=== PATIENT | male | born 1955 | race Caucasian/White ===

== ENCOUNTER 2017-08-21 13:06 | Inpatient (IN) | payer OTHER ==
[~2017-08-21] VITALS: Ht 177.8 cm; Wt 108.9 kg
[~2017-08-21 13:06] MED LIST: ASPIRIN EC81 M1 PO; CRESTOR10 M1 PO; CRESTOR20 M2 PO; JARDIANCE25 M1 PO; LISINOPRIL40 M1 PO; METFORMIN HCL1000 M1 PO; PLAVIX75 M1 PO; PREDNISONE20 M1 PO; TOPROL XL25 M1 PO; TRULICITY1.5 MG/0.5 SC
[2017-08-21 13:43] LABS: ABSOLUTE BASOPHIL COUNT 0 /CUMM (0.0-0.2); ABSOLUTE EOSINOPHIL COUNT 0.1 /CUMM (0.0-0.7); ABSOLUTE GRANULOCYTE CT 8.2 /CUMM (1.4-6.5); ABSOLUTE LYMPH COUNT 3.4 /CUMM (1.2-3.4); ABSOLUTE MONOCYTE COUNT 0.8 /CUMM (0.10-0.60); BASOPHIL % 0.2 % (0.0-2.0); EOSINOPHIL % 0.6 % (0-5); GRANULOCYTE % 65.4 % (42.2-75.2); HEMATOCRIT 39.3 % (42-52); MEAN CORPUSCULAR HGB 31.5 PG (27.0-31.0); MEAN CORPUSCULAR HGB CONC 33.3 G/DL (33.0-37.0); MEAN CORPUSCULAR VOLUME 94.6 FL (80.0-94.0); PLATELET COUNT 347 /CUMM (130-400); RBC DISTRIBUTION WIDTH 13.5 % (11.5-14.5); RED BLOOD CELL CT 4.15 /CUMM (4.70-6.10); WHITE BLOOD CELL COUNT 12.5 /CUMM (4.8-10.8)
--- NOTE | 2017-08-21 13:51 | ED GI/GU/ABDOMINAL COMPLAINT ---
History of Present Illness General Chief Complaint: General Adult Stated Complaint: VOMITING,BLACK STOOL,CELLULITIS ON RT LEG Source: patient Exam Limitations: no limitations Vital Signs & Intake/Output Vital Signs & Intake/Output Vital Signs Date Time Temp Pulse Resp B/P B/P Pulse O2 O2 Flow FiO2 Mean Ox Delivery Rate 08/21 1730 85 88/52 04/ 1653 85 82/52 / 1619 97.8 83 18 72/44 94 Room Air / 1445 88 96/60 04/ 1425 88 18 99/59 98 Room Air 04/ 1420 90 18 102/61 98 Room Air 04/ 1356 90 18 99/54 98 Room Air / 1339 97 Room Air / 1321 97.7 96 18 104/59 98 Room Air Allergies Coded Allergies: No Known Allergies (11/16/15) Reconcile Medications Acetaminophen (Tylenol Extra Strength) 500 MG TABLET 1 TAB PO DAILY PRN Chronic Back Pain . Aspirin (Ecotrin*) 81 MG TABLET.DR 1 TAB PO DAILY HEART/BLOOD (Reported) Dulaglutide (Trulicity) 1.5 MG/0.5 ML PEN.INJCTR 1.5 MG SC QSUN DIABETES ( Reported) Empagliflozin (Jardiance) 25 MG TABLET 1 TAB PO DAILY BP (Reported) Metformin HCl 1,000 MG TABLET 1 TAB PO BID DIABETES (Reported) Metoprolol Succ XL (Toprol XL) 25 MG TAB 1 TAB PO DAILY BP (Reported) Omeprazole 40 MG CAPSULE.DR 1 CAP PO BID GI ulcers Rosuvastatin Calcium (Crestor) 10 MG TABLET 0.5 TAB PO DAILY CHOLESTEROL ( Reported) Triage Note: 61M RETURNS FOR CELLULITIS TO RLE DORSAL CALF AND APPEARS CIRCUMFRENTIAL. DENIES SUBJECTIVE FEVERS OR CHILLS. HAS BEEN TAKING KEFLEX AND SYMPTOMS APPEAR TO BE WORSENING. +NAUSEA SINCE STARTING. 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 ALSO REPORTS RECENT INCREASED BELCHING AND BLACK STOOLS FOR A FEW DAYS. ENDORSES ABD PAIN WITH VOMITING. STOOD UP YESTERDAY AND BECAME DIZZY. DENIES CP/SOB/PALP. DENIES HEADACHE, DIFFICULTY FOCUSING THIS AM. SPEECH CLEAR. Triage Nurses Notes Reviewed? yes HPI: Patient presents for evaluation of vomiting and black stool beginning on Thursday. Past History Travel History Traveled to [place] past 21 day No Medical History Any Pertinent Medical History? 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 No Review of Systems Review of Systems Constitutional: Reports: no symptoms. EENTM: Reports: no symptoms. Respiratory: Reports: no symptoms. Cardiovascular: Reports: no symptoms. GI: Reports: see HPI. Genitourinary: Reports: no symptoms. Musculoskeletal: Reports: no symptoms. Skin: Reports: see HPI. Neurological/Psychological: Reports: no symptoms. Hematologic/Endocrine: Reports: no symptoms. Immunologic/Allergic: Reports: no symptoms. All Other Systems: Reviewed and Negative Physical Exam Physical Exam Gastrointestinal: SEE BELOW Comments: Gen.: Well-nourished, well-developed, no acute respiratory distress. Head: Normocephalic, atraumatic. Eyes: Normal inspection bilaterally Ears: Normal inspection bilaterally Nose: Normal inspection Throat/mouth : Moist mucosa Neck: Supple, full range of motion, no goiter Heart: Regular rate and rhythm, no murmurs rubs or gallops Lungs: Clear to auscultation bilaterally with normal air entry Chest: Nontender Back: Normal range of motion Abdomen: Soft, nontender, nondistended, normal bowel sounds Extremities: Normal range of motion grossly, equal radial pulses, no cyanosis clubbing or edema Neurologic: Cranial nerves grossly intact, speech is clear Skin: warm and dry Psychiatric: Calm, cooperative, no apparent delusions or hallucinations Rectal: Dark heme positive stool without palpable masses Core Measures ACS in differential dx? No Sepsis Present: No Sepsis Focused Exam Completed? No Progress Differential Diagnosis: ULCER, gi BLEED, DIVERTICULOSIS, CELLULITIS, SEPSIS, DEHYDRATION Plan of Care: Orders Procedure Date/time Status Clear Liquid Diet 08/22 B Active CBC WITHOUT DIFFERENTIAL 08/22 599 Active BASIC ELECTROLYTES PLUS BUN&CR 08/22 06 Active Clear Liquid Diet 08/21 D Complete CBC WITHOUT DIFFERENTIAL 08/21 2200 Active Saline Lock 08/21 1751 Active Pathway - chart 08/21 175 Active House Staff 08/21 175 Active Patient Data 08/21 1731 Active LACTIC ACID 08/21 1631 Complete Misc Message 08/21 1628 Active ED Holding Orders 08/21 1628 Active Admit to inpatient 08/21 1628 Active Vital Signs 08/21 1628 Active Code Status 08/21 1628 Active Add-on Test (ER Only) 08/21 1349 Active BLOOD CULTURE 08/21 1331 Active LIPASE 08/21 1331 Complete LACTIC ACID 08/21 1331 Complete HIGH SENSITIVITY CRP 08/21 1331 Complete COMPREHENSIVE METABOLIC PANEL 08/21 1331 Complete CBC WITHOUT DIFFERENTIAL 08/21 1331 Complete EKG 08/21 1331 Active TYPE & SCREEN (NOT X-MATCH) 08/21 1331 Complete PARTIAL THROMBOPLASTIN TIME 08/21 1330 Complete PROTHROMBIN TIME 08/21 1330 Complete Intake & Output 08/21 1322 Active VTE Mechanical Prophylaxis 08/21 UNK Active Vital Signs 08/21 UNK Active MISTAKE 08/21 UNK Active Intake & Output 08/21 UNK Active Hemoccult 08/21 UNK Active Current Medications Sig/Mary Start time Last Medication Dose Stop Time Status Admin Pantoprazole Sodium 40 MG BID 08/22 1000 UNVr (Protonix) Insulin Human Regular 0 Q6 08/21 1800 UNVr (NovoLIN R) Ondansetron HCl 4 MG Q8P PRN 08/21 1800 UNVr (Zofran) Sodium Chloride 1,000 ML .Q6H40M 08/21 1800 UNVr (Normal Saline 0.9%) Sodium Chloride 1,000 ML BOLUS ONE 08/21 1730 AC 08/21 (Normal Saline 0.9%) 08/21 1829 1734 Laboratory Tests 08/21/17 1703: Lactic Acid 1.3 08/21/17 1330: Anion Gap 12, Estimated GFR > 60, BUN/Creatinine Ratio 63.8 H, Glucose 126 H, Lactic Acid 1.4, Calcium 9.3, Total Bilirubin 0.7, AST 14 L, ALT 27, Alkaline Phosphatase 54, C-React Prot High Sens 8.3 H, Total Protein 6.8, Albumin 4.0, Globulin 2.8, Albumin/Globulin Ratio 1.4, Lipase 235, PT 12.0, INR 1.10, APTT 30 , CBC w Diff NO MAN DIFF REQ, RBC 4.15 L, MCV 94.6 H, MCH 31.5 H, MCHC 33.3, RDW 13.5, MPV 7.0 L, Gran % 65.4, Lymphocytes % 27.5, Monocytes % 6.3, Eosinophils % 0.6, Basophils % 0.2, Absolute Granulocytes 8.2 H, Absolute Lymphocytes 3.4, Absolute Monocytes 0.8 H, Absolute Eosinophils 0.1, Absolute Basophils 0 Microbiology 08/21 1330 BLOOD: Blood Culture - RECD Initial ED EKG: NSR, rate (88), nonspecific ST T wave chg Comments: 08/21/2017 2:37:45 PM patient's case discussed with Dr. Fransico Wong who feels the patient should have an endoscopy to assess for a bleeding ulcer. He will call back regarding when and where the endoscopy will be performed (GI suite versus ICU). Hospitalist paged. 08/21/2017 2:45:14 PM patient's case discussed with Dr. Hamm. 08/21/2017 4:20:32 PM patient has returned from the GI suite and according to the family he had erosions but no active bleeding. Unfortunately his blood pressure is low at this time. IV fluids are being bolused but the patient is awake alert and shows good color. He is not tachycardic. He has easily palpable dorsalis pedis pulses despite being in Trendelenburg. 08/21/2017 4:29:15 PM patient's current clinical condition discussed with Dr. Hamm who has evaluated the patient and feels that he appears clinically well given his blood pressure. He feels comfortable with telemetry admission. 08/21/2017 5:55:47 PM patient remains clinically stable despite blood pressure. Departure Departure Disposition: STILL A PATIENT Condition: Stable Clinical Impression Primary Impression: Upper GI bleed Referrals: Richi ALTAMIRANO,Cayetano Isabel (PCP/Family) Departure Forms: Customer Survey General Discharge Information Prescriptions: Current Visit Scripts Acetaminophen (Tylenol Extra Strength) 1 TAB PO DAILY PRN Chronic Back Pain #10 TAB . Omeprazole 1 CAP PO BID #60 CAP Critical Care Note Critical Care Note Critical Care Time: 30-74 min
[2017-08-21 14:05] LABS: PTT 30 SEC (25-37)
--- NOTE | 2017-08-21 16:42 | Cons- Gastroenterology ---
General Information and HPI Consulting Request Date of Consult: 08/21/17 ([facility]/GASTROENTEROLOGY) Requested By: Janes Carmen M.D. Reason for Consult: GI bleed Source of Information: patient, family History of Present Illness: 61 year old male without antecedent GI history, or liver disease. The patient takes NSAIDs (Advil) on a regular basis, as well as ASA 81 mg. He does not usually have heartburn, indigestion, nausea, abdominal pain, or abnormal bowel habits. There is no history of GI bleeding. He apparently had an unrevealing colonoscopy elsewhere within the past couple of years. The patient began to have nausea and vomiting 6 days ago after a restaurant meal. Since that time he has had 1 to 2 black bowel movements per day, as well as intermittent brief upper abdominal discomfort, nausea, and vomiting of nonbloody fluid. There's been no heartburn, bright red blood per rectum, or other abdominal pain. Yesterday he became lightheaded. Of note he is in the midst of being treated for a lower extremity cellulitis with oral antibiotics, with limited improvement. He was borderline hypotensive in the emergency room, with postural hypotension, and was found to have black guaiac positive stool. Allergies/Medications Allergies: Coded Allergies: No Known Allergies (11/16/15) Home Med List: Aspirin (Ecotrin*) 81 MG TABLET.DR 1 TAB PO DAILY HEART/BLOOD (Reported) Dulaglutide (Trulicity) 1.5 MG/0.5 ML PEN.INJCTR 1.5 MG SC QSUN DIABETES ( Reported) Empagliflozin (Jardiance) 25 MG TABLET 1 TAB PO DAILY BP (Reported) Lisinopril 40 MG TABLET 1 TAB PO DAILY BP (Reported) Metformin HCl 1,000 MG TABLET 1 TAB PO BID DIABETES (Reported) Metoprolol Succ XL (Toprol XL) 25 MG TAB 1 TAB PO DAILY BP (Reported) Rosuvastatin Calcium (Crestor) 10 MG TABLET 0.5 TAB PO DAILY CHOLESTEROL ( Reported) Current Medications: Current Medications Sig/Mary Start time Last Medication Dose Route Stop Time Status Admin Ondansetron HCl 4 MG ONCE ONE 08/21 1430 DC / IV 08/21 1431 1418 Ondansetron HCl 0 .STK-MED ONE 08/21 1423 DC .ROUTE Pantoprazole Sodium 40 MG ONCE ONE 08/21 1430 DC 04/ IV / 1431 1418 Pantoprazole Sodium 0 .STK-MED ONE 08/21 1423 DC IV Sodium Chloride 1,000 ML BOLUS ONE 08/21 1400 DC / IV 08/21 1459 1345 Past History Travel History Traveled to [place] past 21 day No Medical History Neurological: NONE EENT: NONE Cardiovascular: hypertension, hyperlipidemia Respiratory: pneumonia Gastrointestinal: NONE Hepatic: NONE Renal: NONE Musculoskeletal: NONE Psychiatric: NONE Endocrine: diabetes Blood Disorders: NONE 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 Denies: chills, fever. EENTM: Denies: icterus, epistaxis. Cardiovascular: Denies: chest pain, syncope. Respiratory: Denies: cough, short of breath. GI: Reports: see HPI. Genitourinary: Denies: dysuria, hematuria. Musculoskeletal: Denies: muscle stiffness, neck pain. Skin: Denies: jaundice, lesions. Neurological/Psychological: Denies: cognitive dysfunction, headache. Hematologic/Endocrine: Reports: bleeding. Denies: bruising. Exam & Diagnostic Data Vital Signs and I&O Vital Signs Date Time Temp Pulse Resp B/P B/P Pulse O2 O2 Flow FiO2 Mean Ox Delivery Rate 08/21 1619 97.8 83 18 72/44 94 Room Air 08/21 1445 88 96/60 / 1425 88 18 99/59 98 Room Air / 1420 90 18 102/61 98 Room Air 08/21 1356 90 18 99/54 98 Room Air 08/21 1339 97 Room Air 08/21 1321 97.7 96 18 104/59 98 Room Air Intake & Output 08/21 1600 08/21 0400 08/20 1600 08/20 0400 08/19 1600 08/19 0400 Intake Total Output Total Balance Patient 229 lb Weight Physical Exam: Well-developed, well-nourished, in no apparent distress. Alert and oriented with normal cognition. Skin with normal turgor, and without lesion, rash, jaundice, petechiae, purpura, mottling. No adenopathy. Sclera anicteric. No oropharyngeal lesions. Neck supple without thyromegaly or mass. Heart regular rhythm. Lungs clear bilaterally. Abdomen soft, nondistended with normal bowel sounds; no tenderness, mass, organomegaly. Extremities without right leg cellulitis. No edema. Results Pertinent Lab Results: Laboratory Tests 08/21 1330 Chemistry Sodium (137 - 145 mmol/L) 141 Potassium (3.5 - 5.1 mmol/L) 4.4 Chloride (98 - 107 mmol/L) 103 Carbon Dioxide (22 - 30 mmol/L) 26 Anion Gap (5 - 16) 12 BUN (9 - 20 mg/dL) 51 H Creatinine (0.7 - 1.2 mg/dL) 0.8 Estimated GFR (>60 ml/min) > 60 BUN/Creatinine Ratio (7 - 25 %) 63.8 H Glucose (65 - 99 mg/dL) 126 H Lactic Acid (0.7 - 2.1 mmol/L) 1.4 Calcium (8.4 - 10.2 mg/dL) 9.3 Total Bilirubin (0.2 - 1.3 mg/dL) 0.7 AST (17 - 59 U/L) 14 L ALT (21 - 72 U/L) 27 Alkaline Phosphatase (< 127 U/L) 54 C-React Prot High Sens (1.0 - 3.0 mg/L) 8.3 H Total Protein (6.3 - 8.2 g/dL) 6.8 Albumin (3.5 - 5.0 g/dL) 4.0 Globulin (1.9 - 4.2 gm/dL) 2.8 Albumin/Globulin Ratio (1.1 - 2.2 %) 1.4 Lipase (23 - 300 U/L) 235 Coagulation PT (9.4 - 12.5 SEC) 12.0 INR (0.90 - 1.17) 1.10 APTT (25 - 37 SEC) 30 Hematology CBC w Diff NO MAN DIFF REQ WBC (4.8 - 10.8 /CUMM) 12.5 H RBC (4.70 - 6.10 /CUMM) 4.15 L Hgb (14.0 - 18.0 G/DL) 13.1 L Hct (42 - 52 %) 39.3 L MCV (80.0 - 94.0 FL) 94.6 H MCH (27.0 - 31.0 PG) 31.5 H MCHC (33.0 - 37.0 G/DL) 33.3 RDW (11.5 - 14.5 %) 13.5 Plt Count (130 - 400 /CUMM) 347 MPV (7.4 - 10.4 FL) 7.0 L Gran % (42.2 - 75.2 %) 65.4 Lymphocytes % (20.5 - 51.1 %) 27.5 Monocytes % (1.7 - 9.3 %) 6.3 Eosinophils % (0 - 5 %) 0.6 Basophils % (0.0 - 2.0 %) 0.2 Absolute Granulocytes (1.4 - 6.5 /CUMM) 8.2 H Absolute Lymphocytes (1.2 - 3.4 /CUMM) 3.4 Absolute Monocytes (0.10 - 0.60 /CUMM) 0.8 H Absolute Eosinophils (0.0 - 0.7 /CUMM) 0.1 Absolute Basophils (0.0 - 0.2 /CUMM) 0 Assessment/Plan Assessment/Recommendations: Melena. The patient presents with black stools for several days, hypotension, elevated BUN in the setting of NSAID and advanced use. There is no significant heart or liver disease. Hemoglobin is stable. Rule out upper GI bleed, likely from peptic ulcer disease. Recommendations * Nothing by mouth, IV fluids, 2 IVs * Type and screen * IV PPI twice a day * CBC twice daily; maintain hemoglobin greater than 7-8 * EGD to be performed, with further recommendations to follow Copies To: Richi ALTAMIRANO,Cayetano Isabel Consult Acknowledgment - Thank you for your consult request.
--- NOTE | 2017-08-21 17:21 | Proc Note Endoscopy ---
Endoscopy Procedure Procedure Date: 08/21/17 Procedure Type: EGD/enteroscopy Putty Maker: Fransico Barakat M.D. ASA Classification: III Indications: GI bleed (melena, hypotension) Instrument: diagnostic gastroscope, adult gastroscope, pediatric colonoscope Meds Received: MAC (O2 via mask) Patient's Tolerance: good Complications: none Extent Reached: jejunum Procedure: The patient signed informed consent, and was medicated. Lidocaine pharyngeal spray was administered. Pulse oximetry, blood pressure and cardiac monitoring were performed continuously throughout the procedure. The Olympus high- definition gastroscope was inserted into the mouth and advanced to the duodenum. Retroflexion was performed within the stomach to examine the cardia. Careful examination was performed. Following this, the gastroscope was exchanged for high-definition pediatric colonoscope, which was inserted through the mouth and advanced to the jejunum (entire length of the colonoscope). Findings: The esophagus had normal caliber and contour. There were no varices. At the area of the GE junction was a 1 cm shallow ulcer covered with exudate. There was surrounding erythema. There was no evident hiatal hernia. The stomach had normal distention, and active peristalsis. There was no old or fresh blood within the gastric cavity. The cardia was normal. Mucosa and folds of the fundus, body and incisura were normal. There were scattered erosions in the antrum. No ulcers were seen. The pyloric channel was normal. Within the duodenal bulb were several erosions, but no noted ulcers. The mucosa and folds from descending duodenum to jejunum were normal. There was no blood, and no vascular lesions were noted. Impression: * GE junction ulcer * Erosive gastroduodenitis * No active/recent bleeding site identified Recommendations: * CBC tonight and in the morning. * Transfuse if hemoglobin drops below 8. * IV PPI twice a day * Clear liquid diet * Call GI with evidence of active bleeding CC: Richi ALTAMIRANO,Cayetano Isabel
--- NOTE | 2017-08-21 17:29 | History & Physical ---
Shanna Marcum 08/21/17 7958: General Information and HPI MD Statement: I have seen and personally examined YESSY MONTOYA and documented this H&P. The patient is a 61 year old M who presented with a patient stated chief complaint of [Cellulitis]. Source of Information: patient, family Exam Limitations: no limitations History of Present Illness: Mr. Montoya is a 61-year-old male with PMH of hypertension, hyperlipidemia, diabetes, recent ER visit treating for right lower extremity cellulitis still on Keflex, presented to ER with chief complaint of black stool for 6 days, along with abdominal pain/vomiting, and dizziness. Patient began to have nausea/ vomiting after meal an outside restaurant on Thursday night 08/16/2017. Patient stated that he noticed some black stool prior to eating outside on Thursday night, however after the restaurant meal, he became more nausea and vomiting intermittently. Patient had 2-3 bowel movements to per day, intermittent abdominal discomfort/nausea/vomiting was nonbloody vomitus, however denied heartburn/BRBPR/chest pain/S OB/headache. Patient admitted a use of NSAIDs for long-term, possibly decades, to combat his chronic back pain secondary to history of herniated disc. He recently increased her dose of NSAIDs due to some muscle achiness from "flu bugs". He was also on treatment of Keflex on cellulitis that he was seen in ER on 2017, was some improvement, currently day 6 on Keflex. Patient was borderline hypotensive in the ER, was postural hypotension, and was found to have black guaiac positive stool. GI intervention was done in the ER visit prior to admission, with IV PPI, and endoscopy which showed GE junction ulcer/erosive gastroduodenitis, however no active bleeding is identified. During our clinical interaction, patient appeared to be alert and oriented 3, and answered all my questions and followed all my commands. Allergies/Medications Allergies: Coded Allergies: No Known Allergies (11/16/15) Home Med list Aspirin (Ecotrin*) 81 MG TABLET.DR 1 TAB PO DAILY HEART/BLOOD (Reported) Dulaglutide (Trulicity) 1.5 MG/0.5 ML PEN.INJCTR 1.5 MG SC QSUN DIABETES ( Reported) Empagliflozin (Jardiance) 25 MG TABLET 1 TAB PO DAILY BP (Reported) Lisinopril 40 MG TABLET 1 TAB PO DAILY BP (Reported) Metformin HCl 1,000 MG TABLET 1 TAB PO BID DIABETES (Reported) Metoprolol Succ XL (Toprol XL) 25 MG TAB 1 TAB PO DAILY BP (Reported) Rosuvastatin Calcium (Crestor) 10 MG TABLET 0.5 TAB PO DAILY CHOLESTEROL ( Reported) Past History Travel History Traveled to [place] past 21 day No Medical History Neurological: NONE EENT: NONE Cardiovascular: hypertension, hyperlipidemia Respiratory: pneumonia Gastrointestinal: NONE Hepatic: NONE Renal: NONE Musculoskeletal: NONE Psychiatric: NONE Endocrine: diabetes Blood Disorders: NONE Cancer(s): NONE SLAB GRINDER/Reproductive: NONE Surgical History Surgical History: spinal fusion Past Family/Social History Psychosocial History Smoking Status: Never Smoked ETOH Use: occasional use Illicit Drug Use: denies illicit drug use Functional Ability ADLs Independent: dressing, eating, toileting, bathing. Ambulation: independent IADLs Independent: shopping, housework, finances, food prep, telephone, transportation , medication admin. Review of Systems Review of Systems Constitutional: Reports: see HPI. Exam & Diagnostic Data Last 24 Hrs of Vital Signs/I&O Vital Signs Date Time Temp Pulse Resp B/P B/P Pulse O2 O2 Flow FiO2 Mean Ox Delivery Rate 08/21 1653 85 82/52 / 1619 97.8 83 18 72/44 94 Room Air 04/ 1445 88 96/60 04/06 1425 88 18 99/59 98 Room Air 04/ 1420 90 18 102/61 98 Room Air 04/ 1356 90 18 99/54 98 Room Air / 1339 97 Room Air / 1321 97.7 96 18 104/59 98 Room Air Intake & Output 08/21 1600 / 0800 04/06 0000 Intake Total Output Total Balance Patient 103.873 kg Weight Physical Exam General Appearance Alert, Oriented X3, Cooperative, No Acute Distress Skin No Rashes, No Breakdown, No Significant Lesion Skin Temp/Moisture Exam: Warm/Dry Sepsis Skin Exam (color): Normal for Ethnicity HEENT Atraumatic, PERRLA Neck Supple, No JVD Lymphatic Axillary nl, Cervical nl Cardiovascular Regular Rate Lungs Clear to Auscultation, Normal Air Movement Abdomen Normal Bowel Sounds, Soft, No Tenderness Neurological Normal Speech, Strength at 5/5 X4 Ext Extremities No Cyanosis, No Edema, Normal Pulses, RLE cellulitis w/ erythema and elevated skin temp, mild tenderness of calf upon pressing, improved from previously drawn border Last 24 Hrs of Labs/Jose: Laboratory Tests 08/21/17 1703: Lactic Acid 1.3 08/21/17 1330: Anion Gap 12, Estimated GFR > 60, BUN/Creatinine Ratio 63.8 H, Glucose 126 H, Lactic Acid 1.4, Calcium 9.3, Total Bilirubin 0.7, AST 14 L, ALT 27, Alkaline Phosphatase 54, C-React Prot High Sens 8.3 H, Total Protein 6.8, Albumin 4.0, Globulin 2.8, Albumin/Globulin Ratio 1.4, Lipase 235, PT 12.0, INR 1.10, APTT 30 , CBC w Diff NO MAN DIFF REQ, RBC 4.15 L, MCV 94.6 H, MCH 31.5 H, MCHC 33.3, RDW 13.5, MPV 7.0 L, Gran % 65.4, Lymphocytes % 27.5, Monocytes % 6.3, Eosinophils % 0.6, Basophils % 0.2, Absolute Granulocytes 8.2 H, Absolute Lymphocytes 3.4, Absolute Monocytes 0.8 H, Absolute Eosinophils 0.1, Absolute Basophils 0 Microbiology 08/21 1330 BLOOD: Blood Culture - RECD Diagnostic Data EKG Results NSR Assessment/Plan Assessment: Mr. Montoya is a 61-year-old male with PMH of hypertension, hyperlipidemia, diabetes, recent ER visit treating for right lower extremity cellulitis still on Keflex, presented to ER with chief complaint of black stool for 6 days, along with abdominal pain/vomiting, and dizziness. Patient began to have nausea/ vomiting after meal an outside restaurant on Thursday night 08/16/2017. Patient stated that he noticed some black stool prior to eating outside on Thursday night, however after the restaurant meal, he became more nausea and vomiting intermittently. Patient had 2-3 bowel movements to per day, intermittent abdominal discomfort/nausea/vomiting was nonbloody vomitus, however denied heartburn/BRBPR/chest pain/S OB/headache. Patient admitted a use of NSAIDs for long-term, possibly decades, to combat his chronic back pain secondary to history of herniated disc. He recently increased her dose of NSAIDs due to some muscle achiness from "flu bugs". He was also on treatment of Keflex on cellulitis that he was seen in ER on 2017, was some improvement, currently day 6 on Keflex. Patient was borderline hypotensive in the ER, was postural hypotension, and was found to have black guaiac positive stool. GI intervention was done in the ER visit prior to admission, with IV PPI, and endoscopy which showed GE junction ulcer/erosive gastroduodenitis, however no active bleeding is identified. During our clinical interaction, patient appeared to be alert and oriented 3, and answered all my questions and followed all my commands. On admission, Vitals: Stable BP 88/52, HR 85, satting 94% room air -CBC: WBC 12.5, H/H 14.1/49.3, PLT 347, PT/INR 12.0/1.1 -BMP: Unremarkable, lactic acid 1.4 -UA/Microbiology: None available -EKG: Normal sinus rhythm without significant ST-T abnormalities. -Interventions in ER: IV PPI 1, IV Zofran 1, IV normal saline bolus 1 Problem list & Assessment: #Peptic ulcer disease: As revealed on endoscopy done on admission. Currently stable without active bleeding, however would contribute to the black stools, taking into account patient's recent increase of a use of NSAIDs. #Symptomatic anemia from acute blood loss: As above #RLE cellulitis: Currently improved per patient, however still had some elevation of skin temperature, and mild tenderness at cough area. We will continue treatment of antibiotics #Hypotension: Status post IVF in the ER. #Hx of PVCs s/p Cath, HTN, HLD, DM, DM neuropathy, CBP 2/2 herniated disc Hospital Course: - Admit to telemetry -Continue IV fluids normal saline, vitals every 2 hours on blood pressure. -CBC every 12 hours. DVT prophylaxis none Clear liquid Full Code As Ranked By This Provider Problem List: 1. Cellulitis of right leg 2. Upper GI bleed Core Measures/Misc (02/01) Acute Coronary Syndrome ACS Diagnosis: No Congestive Heart Failure Congestive Heart Failure Diagnosis No Cerebrovascular Accident CVA/TIA Diagnosis: No VTE (View Protocol) VTE Risk Factors Age>40 No Mechanical VTE Prophylaxis d/t Medical Contraindication No VTE Pharm Prophylaxis d/t Medical Contraindication Sepsis (View protocol) Sepsis Present: No Cassidy Hamm 08/21/17 2946: Attending MD Review Statement Attending Statement Attending MD Statement: examined this patient, discuss w/resident/PA/RAM PRESS OPERATOR, agreed w/resident/PA/RAM PRESS OPERATOR, discussed with family, reviewed EMR data (avail), discussed with nursing, discussed with case mgmt, reviewed images, amended to note Attending Assessment/Plan: Patient came with complaints to vomiting, black colred stools, with burnng sensation in stomach , was taking lot of pain meds. NSAIDS for musculoskeletal pain. Patient underwent EGD and found to have peptic ulcer disease with 1 cm ulcer at GE junction with exudates. No active bleeding reported. Patient admitted to telemetry [facility]. Watch for bleeding, Diet as per GI, NO NSAIDS, IV PPI BID, IVF, serial cbc monitoring and transfuse to keep hb 7-8. Follow GI recommendation and monitor hemodynamics. gi/dvt prophylaxis full code. Plan of care d/thu patient bedside in ER. Time spent >37 min.. Marv Hernandez 08/21/17 1756: Resident Review Statement Resident Statement: examined this patient, discussed with hospitality internship, agreed with hospitality internship, discussed with family, amended to note Other Findings: Mr Montoya is a 61 year man w/ a PMHx of HTN, HLD, T2DM, [place] palsy ( dx'ed 2016) came to the hospital with a chief concern of erythema of right lower extremity, dark stools 5 days. Reported having had food at a restaurant 5 days ago, after which he had nausea and vomiting associated with abdominal discomfort. Noticed melena around the same time. Reported an episode of dizziness evening prior to presentation to the ER. Reported NSAID use for many years, with an increased use of the drug recently. Also has been using aspirin. No loss of consciousness, weakness in upper or lower extremities, loss of bladder bowel dysfunction. Pain in his right lower extremity associated with erythema started around one week ago, and was diagnosed as having Cellulitis, and was treated with Keflex with resolution of symptoms so far. No fever, chills. History of previous colonoscopies with negative findings. No chest pain, shortness of breath, palpitations. At the time of admission-temperature 97.7, pulse rate 96, respiration 18, blood pressure 104/59 (persistently hypotensive), pulse ox 98% on room air. General Exam: AAOx3, No acute distress, pale; Skin: No rashes, no breakdown; HEENT: PERRLA, EOMI;Neck: Supple, No JVD ;No cervical lymphadenopathy;CVS: Reg Rate, Normal S1,S2, No MGR;Resp: Normal air entry, no ronchi/rales;Abdomen: Soft , No tenderness, Normal Bowel Sounds; Neuro: Normal Speech, Strength 5/5 b/l x 4 extremities, Sensation intact, CN III-XII NL, Reflexes 2+; Extremities: No cyanosis, no pedal edema, erythema on the RLE on the shen area which is receeding from the previous skin marking. No tenderness. Pertinent lab findings-WBC 12.5, hemoglobin 13.1, hematocrit 39.3, MCV 94.6, platelets 347. Sodium 141, potassium 4.4, bicarbonate 26, anion gap 12, BUN 51, creatinine 0.8 (likely upper GI bleed), glucose 126. INR 1.10, Liver function- AST 14, ALT 27, alkaline phosphatase 54. An upper endoscopy was done with the patient presented to the emergency room by Dr. Wong, 1 cm shallow ulcer covered with exudate was found at the area of the GE junction. There was surrounding erythema. There was no evident hiatal hernia. Erosive gastroduodenitis. No active/recent bleeding site identified Etiology in this case of the clinical findings of GI bleed secondary to NSAID use, and cellulitis of right lower extremity could just be coincidental. Elevated BUN, is consistent with a possible upper GI bleed, that said NSAIDs can cause ulcers anywhere in the GI tract. Problem list: #1 acute blood loss anemia secondary to GI bleed #2 positive sirs criteria #3 right lower extremity cellulitis #4 hypertension #5 hyperlipidemia #6 type 2 diabetes Plan: #1 monitor the patient on telemetry, if he continues to be hypotensive with transfer the patient to ICU. Bolus NS x 2 bags. #2 type and screen, keep the blood transfusion available. Repeat CBC in the p.m. , and transfuse to keep hemoglobin above 8. #3 large-bore IV access #4 normal saline IV fluids #5 IV Protonix IV twice a day #6 hold aspirin, all NSAIDs #7 Hold antihypertensives #8 monitor vitals closely #9 blood cultures #10 antiemetics as needed. #11 continue Keflex to complete the course. #12 recheck CBC every 12 hours. #13 normal saline at 150 mL an hour 1 bag. Housekeeping: #1 DVT prophylaxis-Alps only. GI prophylaxis-Protonix Full code. Clear liquid diet for now. Advance the diet as tolerated. Management plan discussed with attending.
[2017-08-21 19:30] VITALS: BP 104/58
[2017-08-21 22:52] VITALS: BP 106/62
[2017-08-21 23:14] LABS: ABSOLUTE BASOPHIL COUNT 0 /CUMM (0.0-0.2); ABSOLUTE EOSINOPHIL COUNT 0.1 /CUMM (0.0-0.7); ABSOLUTE GRANULOCYTE CT 5.8 /CUMM (1.4-6.5); ABSOLUTE LYMPH COUNT 2.6 /CUMM (1.2-3.4); ABSOLUTE MONOCYTE COUNT 0.7 /CUMM (0.10-0.60); BASOPHIL % 0.3 % (0.0-2.0); EOSINOPHIL % 1.5 % (0-5); GRANULOCYTE % 62.4 % (42.2-75.2); MEAN CORPUSCULAR HGB 31.9 PG (27.0-31.0); MEAN CORPUSCULAR HGB CONC 33.5 G/DL (33.0-37.0); MEAN CORPUSCULAR VOLUME 95.1 FL (80.0-94.0); MEAN PLATELET VOLUME 6.9 FL (7.4-10.4); PLATELET COUNT 253 /CUMM (130-400); RBC DISTRIBUTION WIDTH 13.5 % (11.5-14.5); WHITE BLOOD CELL COUNT 9.4 /CUMM (4.8-10.8)
[2017-08-21 23:21] LABS: HEMATOCRIT 29.1 % (42-52); RED BLOOD CELL CT 3.06 /CUMM (4.70-6.10)
[2017-08-22 06:53] VITALS: BP 110/68
--- NOTE | 2017-08-22 08:43 | PN- Housestaff ---
See Addendum Shanna Marcum 08/22/17 0843: Subjective Follow-up For: As problem list in [facility] Subjective: No overnight event. Patient was kept on clear liquid diet. Had no bowel movement so far, and had about 4 times urination, could ambulate to restroom without assistance. NO other specific complaint. Review of Systems Constitutional: Reports: see HPI. Objective Last 24 Hrs of Vital Signs/I&O Vital Signs Date Time Temp Pulse Resp B/P B/P Pulse O2 O2 Flow FiO2 Mean Ox Delivery Rate 08/22 0653 97.4 87 20 110/68 97 Room Air 04/ 2252 98.3 89 20 106/62 96 Room Air 04/ 1930 99.1 85 20 104/58 96 Room Air 04/ 1832 85 100/62 04/06 1730 85 88/52 04/06 1653 85 82/52 04/ 1619 97.8 83 18 72/44 94 Room Air 04/06 1445 88 96/60 04/06 1425 88 18 99/59 98 Room Air 04/06 1420 90 18 102/61 98 Room Air 04/06 1356 90 18 99/54 98 Room Air 04/06 1339 97 Room Air 04/06 1321 97.7 96 18 104/59 98 Room Air Intake & Output 08/22 1600 08/22 0800 08/22 0000 Intake Total 200 300 Output Total 700 300 Balance -500 0 Intake, Oral 200 300 Output, Urine 700 300 Patient 103.873 kg Weight Weight Reported by Patient Measurement Method Physical Exam General Appearance: Alert, Oriented X3, Cooperative, No Acute Distress Cardiovascular: Regular Rate, Normal S1, Normal S2 Lungs: Clear to Auscultation, Normal Air Movement Abdomen: Normal Bowel Sounds, Soft, No Tenderness Neurological: Normal Speech Extremities: No Cyanosis, No Edema, Normal Pulses Current Medications: Current Medications Sig/Mary Start time Last Medication Dose Route Stop Time Status Admin Cephalexin 500 MG Q8 08/21 2200 AC / PO 0531 Insulin Aspart 0 TIDAC 08/22 0800 AC SC Insulin Human Regular 0 Q6 08/21 1800 DC SC Ondansetron HCl 4 MG Q8P PRN 08/21 1800 AC IV Ondansetron HCl 4 MG ONCE ONE 08/21 1430 DC 04/ IV 08/21 1431 1418 Ondansetron HCl 0 .STK-MED ONE 08/21 1423 DC .ROUTE Pantoprazole Sodium 40 MG BID 08/22 1000 AC 08/22 IV 0843 Pantoprazole Sodium 40 MG ONCE ONE 08/21 1430 DC / IV 08/21 1431 1418 Pantoprazole Sodium 0 .STK-MED ONE 08/21 1423 DC IV Sodium Chloride 1,000 ML .[id number] 08/21 1800 AC 08/22 IV 0531 Sodium Chloride 1,000 ML BOLUS ONE 08/21 1730 DC 08/21 IV 08/21 1829 1734 Sodium Chloride 1,000 ML BOLUS ONE 08/21 1400 DC 08/21 IV 08/21 1459 1345 Last 24 Hrs of Lab/Jose Results Last 24 Hrs of Labs/Mics: Laboratory Tests 08/22/17 0620: Anion Gap 7, Estimated GFR > 60, BUN/Creatinine Ratio 31.4 H, CBC w Diff Pending, WBC Pending, RBC Pending, Hgb Pending, Hct Pending, MCV Pending, MCH Pending, MCHC Pending, RDW Pending, Plt Count Pending, MPV Pending 08/21/17 2250: CBC w Diff NO MAN DIFF REQ, RBC 3.06 L, MCV 95.1 H, MCH 31.9 H, MCHC 33.5, RDW 13.5, MPV 6.9 L, Gran % 62.4, Lymphocytes % 28.0, Monocytes % 7.8, Eosinophils % 1.5, Basophils % 0.3, Absolute Granulocytes 5.8, Absolute Lymphocytes 2.6, Absolute Monocytes 0.7 H, Absolute Eosinophils 0.1, Absolute Basophils 0 08/21/17 1703: Lactic Acid 1.3 08/21/17 1330: Anion Gap 12, Estimated GFR > 60, BUN/Creatinine Ratio 63.8 H, Glucose 126 H, Lactic Acid 1.4, Calcium 9.3, Total Bilirubin 0.7, AST 14 L, ALT 27, Alkaline Phosphatase 54, C-React Prot High Sens 8.3 H, Total Protein 6.8, Albumin 4.0, Globulin 2.8, Albumin/Globulin Ratio 1.4, Lipase 235, PT 12.0, INR 1.10, APTT 30 , CBC w Diff NO MAN DIFF REQ, RBC 4.15 L, MCV 94.6 H, MCH 31.5 H, MCHC 33.3, RDW 13.5, MPV 7.0 L, Gran % 65.4, Lymphocytes % 27.5, Monocytes % 6.3, Eosinophils % 0.6, Basophils % 0.2, Absolute Granulocytes 8.2 H, Absolute Lymphocytes 3.4, Absolute Monocytes 0.8 H, Absolute Eosinophils 0.1, Absolute Basophils 0 Microbiology 08/21 1330 BLOOD: Blood Culture - RECD Assessment/Plan Assessment: Mr. Benitez is a 61-year-old male with PMH of hypertension, hyperlipidemia, diabetes, recent ER visit treating for right lower extremity cellulitis still on Keflex, presented to ER with chief complaint of black stool for 6 days, along with abdominal pain/vomiting, and dizziness. Patient began to have nausea/ vomiting after meal an outside restaurant on Thursday night 08/16/2017. Patient stated that he noticed some black stool prior to eating outside on Thursday, however after the restaurant meal, he became more nausea and vomiting intermittently. Patient had 2-3 bowel movements to per day, intermittent abdominal discomfort/nausea/vomiting was nonbloody vomitus, however denied heartburn/BRBPR/chest pain/S OB/headache. Patient admitted a use of NSAIDs for long-term, possibly decades, to combat his chronic back pain secondary to history of herniated disc. He recently increased her dose of NSAIDs due to some muscle achiness from "flu bugs". He was also on treatment of Keflex on cellulitis that he was seen in ER on 2017, was some improvement, currently day 6 on Keflex. Patient was borderline hypotensive in the ER, was postural hypotension, and was found to have black guaiac positive stool. GI intervention was done in the ER visit prior to admission, with IV PPI, and endoscopy which showed GE junction ulcer/erosive gastroduodenitis, however no active bleeding is identified. During our clinical interaction, patient appeared to be alert and oriented 3, and answered all my questions and followed all my commands. On admission, Vitals: Stable BP 88/52, HR 85, satting 94% room air -CBC: WBC 12.5, H/H 14.1/49.3, PLT 347, PT/INR 12.0/1.1 -BMP: Unremarkable, lactic acid 1.4 -UA/Microbiology: None available -EKG: Normal sinus rhythm without significant ST-T abnormalities. -Interventions in ER: IV PPI 1, IV Zofran 1, IV normal saline bolus 1 Problem list & Assessment: #Peptic ulcer disease: As revealed on endoscopy done on admission. Currently stable without active bleeding, however would contribute to the black stools, taking into account patient's recent increase of a use of NSAIDs. #Symptomatic anemia from acute blood loss: As above #RLE cellulitis: Currently improved per patient, however still had some elevation of skin temperature, and mild tenderness at cough area. We will continue treatment of antibiotics #Hypotension: Status post IVF in the ER. #Hx of PVCs s/p Cath, HTN, HLD, DM, DM neuropathy, CBP 2/2 herniated disc Hospital Course: -Continue telemetry -Continue IV fluids normal saline, vitals every 2 hours on blood pressure. -Tolerated clear liquid diet well. -CBC reveald 9.4 on latest lab, stablized overnight. Will keep Hgb >8. Daily CBC monitoring. DVT prophylaxis none Clear liquid Full Code Problem List: 1. Upper GI bleed 2. Cellulitis of right leg Pain Ratin Pain Location: NA Pain Goal: Remain pain free Pain Plan: see AP Tomorrow's Labs & Rationales: CBC/BEP HanselCassidy gutierrez 08/22/17 1011: Attending MD Review Statement Attending Statement Attending MD Statement: examined this patient, discuss w/resident/PA/ACCOUNT INSTALLER, agreed w/resident/PA/ACCOUNT INSTALLER, discussed with family, reviewed EMR data (avail), discussed with nursing, discussed with case mgmt, reviewed images, amended to note Attending Assessment/Plan: Patient came with complaints to vomiting, black colred stools, with burnng sensation in stomach , was taking lot of pain meds. NSAIDS for musculoskeletal pain. Patient underwent EGD and found to have peptic ulcer disease with 1 cm ulcer at GE junction with exudates. No active bleeding reported. Overnight events: No new complaints. Vital stable. Patient admitted to telemetry monitoirng. Watch for bleeding, Advcance Diet as per GI, NO NSAIDS, IV PPI BID, IVF, serial cbc monitoring and transfuse to keep hb 7-8. Follow GI recommendation and monitor hemodynamics. Antihypertensives on hold, resume as able. RISS and titrate insulin as needed.
[2017-08-22 09:02] LABS: ABSOLUTE BASOPHIL COUNT 0 /CUMM (0.0-0.2); ABSOLUTE EOSINOPHIL COUNT 0.2 /CUMM (0.0-0.7); ABSOLUTE GRANULOCYTE CT 4.9 /CUMM (1.4-6.5); ABSOLUTE LYMPH COUNT 2.1 /CUMM (1.2-3.4); ABSOLUTE MONOCYTE COUNT 0.6 /CUMM (0.10-0.60); BASOPHIL % 0.3 % (0.0-2.0); EOSINOPHIL % 2.5 % (0-5); GRANULOCYTE % 62.6 % (42.2-75.2); HEMATOCRIT 27.5 % (42-52); MEAN CORPUSCULAR HGB 32.1 PG (27.0-31.0); MEAN CORPUSCULAR HGB CONC 34.2 G/DL (33.0-37.0); MEAN PLATELET VOLUME 7.3 FL (7.4-10.4); PLATELET COUNT 222 /CUMM (130-400); RBC DISTRIBUTION WIDTH 13.5 % (11.5-14.5); RED BLOOD CELL CT 2.93 /CUMM (4.70-6.10); WHITE BLOOD CELL COUNT 7.8 /CUMM (4.8-10.8)
--- NOTE | 2017-08-22 13:22 | PN- Gastroenterology ---
Assessment/Plan GI Assessment/Recommendations: GI bleed/melena. There is no evidence of active bleeding. Hemoglobin/ hematocrit have dropped since admission, which is not unexpected (equilibration, rehydration). BUN has dropped. Endoscopy demonstrated a GE junction ulcer, and erosive gastroduodenitis. Recommendations * May advance diet to regular * Change PPI to oral agent, twice a day * Check CBC tomorrow morning * No NSAIDs Subjective Subjective: The patient denies dyspepsia, abdominal pain. No bowel movements, or blood per rectum/melena. Tolerating liquid diet. Review of Systems: Without change from initial Objective Vital Signs and I&Os Vital Signs Date Time Temp Pulse Resp B/P B/P Pulse O2 O2 Flow FiO2 Mean Ox Delivery Rate 08/22 0653 97.4 87 20 110/68 97 Room Air 04/ 2252 98.3 89 20 106/62 96 Room Air 04/ 1930 99.1 85 20 104/58 96 Room Air 04/06 1832 85 100/62 04/06 1730 85 88/52 04/06 1653 85 82/52 04/06 1619 97.8 83 18 72/44 94 Room Air 04/06 1445 88 96/60 04/06 1425 88 18 99/59 98 Room Air 04/06 1420 90 18 102/61 98 Room Air 04/06 1356 90 18 99/54 98 Room Air 04/06 1339 97 Room Air 04/06 1321 97.7 96 18 104/59 98 Room Air Intake & Output / 1600 04/07 0400 04/06 1600 04/06 0400 04/05 1600 04/05 0400 Intake Total 200 300 Output Total 700 300 Balance -500 0 Intake, Oral 200 300 Output, Urine 700 300 Patient 229 lb 229 lb Weight Weight Reported by Patient Measurement Method Physical Exam: Alert and oriented. Sclera anicteric. No adenopathy. Abdomen soft, nontender. No edema. Current Medications: Current Medications Sig/Mary Start time Last Medication Dose Route Stop Time Status Admin Cephalexin 500 MG Q8 08/21 2200 AC / PO 0531 Insulin Aspart 0 TIDAC 08/22 0800 AC SC Insulin Human Regular 0 Q6 08/21 1800 DC SC Ondansetron HCl 4 MG Q8P PRN 08/21 1800 AC IV Ondansetron HCl 4 MG ONCE ONE 08/21 1430 DC / IV 08/21 1431 1418 Ondansetron HCl 0 .STK-MED ONE 08/21 1423 DC .ROUTE Pantoprazole Sodium 40 MG BID 08/22 1000 AC 08/22 IV 0843 Pantoprazole Sodium 40 MG ONCE ONE 08/21 1430 DC 04/ IV 08/21 1431 1418 Pantoprazole Sodium 0 .STK-MED ONE 08/21 1423 DC IV Sodium Chloride 1,000 ML .Q6H40M 08/21 1800 AC 08/22 IV 1302 Sodium Chloride 1,000 ML BOLUS ONE 08/21 1730 DC 04/ IV 08/21 1829 1734 Sodium Chloride 1,000 ML BOLUS ONE 08/21 1400 DC 04/ IV 08/21 1459 1345 Results Pertinent Lab Results: Laboratory Tests 08/22 08/21 0620 2250 Chemistry Sodium (137 - 145 mmol/L) 140 Potassium (3.5 - 5.1 mmol/L) 3.9 Chloride (98 - 107 mmol/L) 107 Carbon Dioxide (22 - 30 mmol/L) 26 Anion Gap (5 - 16) 7 BUN (9 - 20 mg/dL) 22 H Creatinine (0.7 - 1.2 mg/dL) 0.7 Estimated GFR (>60 ml/min) > 60 BUN/Creatinine Ratio (7 - 25 %) 31.4 H Hematology CBC w Diff NO MAN DIFF REQ NO MAN DIFF REQ WBC (4.8 - 10.8 /CUMM) 7.8 9.4 RBC (4.70 - 6.10 /CUMM) 2.93 L 3.06 L Hgb (14.0 - 18.0 G/DL) 9.4 L 9.7 L Hct (42 - 52 %) 27.5 L 29.1 L MCV (80.0 - 94.0 FL) 94.0 95.1 H MCH (27.0 - 31.0 PG) 32.1 H 31.9 H MCHC (33.0 - 37.0 G/DL) 34.2 33.5 RDW (11.5 - 14.5 %) 13.5 13.5 Plt Count (130 - 400 /CUMM) 222 253 MPV (7.4 - 10.4 FL) 7.3 L 6.9 L Gran % (42.2 - 75.2 %) 62.6 62.4 Lymphocytes % (20.5 - 51.1 %) 27.0 28.0 Monocytes % (1.7 - 9.3 %) 7.6 7.8 Eosinophils % (0 - 5 %) 2.5 1.5 Basophils % (0.0 - 2.0 %) 0.3 0.3 Absolute Granulocytes (1.4 - 6.5 /CUMM) 4.9 5.8 Absolute Lymphocytes (1.2 - 3.4 /CUMM) 2.1 2.6 Absolute Monocytes (0.10 - 0.60 /CUMM) 0.6 0.7 H Absolute Eosinophils (0.0 - 0.7 /CUMM) 0.2 0.1 Absolute Basophils (0.0 - 0.2 /CUMM) 0 0 /08/21 1703 1330 Chemistry Sodium (137 - 145 mmol/L) 141 Potassium (3.5 - 5.1 mmol/L) 4.4 Chloride (98 - 107 mmol/L) 103 Carbon Dioxide (22 - 30 mmol/L) 26 Anion Gap (5 - 16) 12 BUN (9 - 20 mg/dL) 51 H Creatinine (0.7 - 1.2 mg/dL) 0.8 Estimated GFR (>60 ml/min) > 60 BUN/Creatinine Ratio (7 - 25 %) 63.8 H Glucose (65 - 99 mg/dL) 126 H Lactic Acid (0.7 - 2.1 mmol/L) 1.3 1.4 Calcium (8.4 - 10.2 mg/dL) 9.3 Total Bilirubin (0.2 - 1.3 mg/dL) 0.7 AST (17 - 59 U/L) 14 L ALT (21 - 72 U/L) 27 Alkaline Phosphatase (< 127 U/L) 54 C-React Prot High Sens (1.0 - 3.0 mg/L) 8.3 H Total Protein (6.3 - 8.2 g/dL) 6.8 Albumin (3.5 - 5.0 g/dL) 4.0 Globulin (1.9 - 4.2 gm/dL) 2.8 Albumin/Globulin Ratio (1.1 - 2.2 %) 1.4 Lipase (23 - 300 U/L) 235 Coagulation PT (9.4 - 12.5 SEC) 12.0 INR (0.90 - 1.17) 1.10 APTT (25 - 37 SEC) 30 Hematology CBC w Diff NO MAN DIFF REQ WBC (4.8 - 10.8 /CUMM) 12.5 H RBC (4.70 - 6.10 /CUMM) 4.15 L Hgb (14.0 - 18.0 G/DL) 13.1 L Hct (42 - 52 %) 39.3 L MCV (80.0 - 94.0 FL) 94.6 H MCH (27.0 - 31.0 PG) 31.5 H MCHC (33.0 - 37.0 G/DL) 33.3 RDW (11.5 - 14.5 %) 13.5 Plt Count (130 - 400 /CUMM) 347 MPV (7.4 - 10.4 FL) 7.0 L Gran % (42.2 - 75.2 %) 65.4 Lymphocytes % (20.5 - 51.1 %) 27.5 Monocytes % (1.7 - 9.3 %) 6.3 Eosinophils % (0 - 5 %) 0.6 Basophils % (0.0 - 2.0 %) 0.2 Absolute Granulocytes (1.4 - 6.5 /CUMM) 8.2 H Absolute Lymphocytes (1.2 - 3.4 /CUMM) 3.4 Absolute Monocytes (0.10 - 0.60 /CUMM) 0.8 H Absolute Eosinophils (0.0 - 0.7 /CUMM) 0.1 Absolute Basophils (0.0 - 0.2 /CUMM) 0
[2017-08-22 14:13] VITALS: BP 98/62
--- NOTE | 2017-08-22 14:24 | Patient Discharge Instructions ---
Discharge Instructions General Discharge Information Special Instructions: - Please continue taking your Keflex for two more days after discharge. You have 4 pills left from last admission. - Please stop taking lisinopril for now until being seen by your PCP. Please monitor your blood pressure. If it runs high, you may restart lisinopril prior being seen by PCP. - Please avoid taking NSAIDs (eg. Advil, Ibuprofen) for your pain, and instead may try Acetaminophen. Please consult your PCP for ongoing back pain care. - Please recheck your CBC in a week. A script is provided. - Please follow up with your GI specialist Dr. Barakat within 1-2 weeks of discharge. Please discuss with him about a possible pill cam procedure that could be done as an outpatient. - Please follow up with your primary care physician within 1-2 weeks of discharge. Inform your primary care physician of this admission to [facility]. - Continue your current medications per discharge instructions. - Please watch for these problems: Fever, Chills, Nausea, Vomiting, Shortness of Breath, Productive Cough, Chest Pain/Discomfort, Abdominal Pain, Active Bleeding or Bloody urine/stool. -Please talk to your PCP about resuming Lisinopril within one week. Diet Continue normal diet: Yes Recommended Diet: Diabetic Activity Full Activity/No Limits: Yes Acute Coronary Syndrome Inclusion Criteria At DC or during hospital stay patient has or had the following: ACS DIAGNOSIS No Discharge Core Measures Meds if any: Prescribed or Continued at Discharge Meds if any: NOT Prescribed or Continued at Discharge Congestive Heart Failure Inclusion Criteria At DC or during hospital stay patient has or had the following: CHF DIAGNOSIS No Discharge Core Measures Meds if any: Prescribed or Continued at Discharge Meds if any: NOT Prescribed or Continued at Discharge Cerebrovascular accident Inclusion Criteria At DC or during hospital stay patient has or had the following: CVA/TIA Diagnosis No Discharge Core Measures Meds if any: Prescribed or Continued at Discharge Meds if any: NOT Prescribed or Continued at Discharge Venous thromboembolism Inclusion Criteria VTE Diagnosis No VTE Type NONE VTE Confirmed by (Test) NONE Discharge Core Measures - Per Current guidelines, there needs to be overlap - treatment for the first 5 days of Warfarin therapy. - If discharged on Warfarin prior to 5 days of - overlap therapy, the patient will need to be - assessed for post discharge needs including - *Post discharge parental anticoagulation - *Warfarin and/or parental anticoagulation education - *Follow up date to check INR post discharge At least 5 days overlap therapy as Inpatient No Meds if any: Prescribed or Continued at Discharge Note: Overlap Therapy is Warfarin and Anticoagulant Meds if any: NOT Prescribed or Continued at Discharge
[2017-08-22] MEDS ORDERED: OMEPRAZOLE20 M2 PO (17:18)
[2017-08-22] MEDS ORDERED: TYLENOL EXTRA500 M2 PO (17:18)
--- NOTE | 2017-08-22 17:54 | Discharge Summary ---
Visit Information Visit Dates Admission Date: 08/21/17 Discharge Date: 08/24/2017 Hospital Course Course Attending Physician: Cassidy Hamm MD Primary Care Physician: Cayetano Stoddard MD Hospital Course: Mr. Benitez is a 61-year-old male with PMH of hypertension, hyperlipidemia, diabetes, recent ER visit treating for right lower extremity cellulitis still on Keflex, presented to ER with chief complaint of black stool for 6 days, along with abdominal pain/vomiting, and dizziness. Patient began to have nausea/ vomiting after meal an outside restaurant on Thursday night 08/16/2017. Patient stated that he noticed some black stool prior to eating outside on Thursday, however after the restaurant meal, he became more nausea and vomiting intermittently. Patient had 2-3 bowel movements to per day, intermittent abdominal discomfort/nausea/vomiting was nonbloody vomitus, however denied heartburn/BRBPR/chest pain/S OB/headache. Patient admitted a use of NSAIDs for long-term, possibly decades, to combat his chronic back pain secondary to history of herniated disc. He recently increased her dose of NSAIDs due to some muscle achiness from "flu bugs". He was also on treatment of Keflex on cellulitis that he was seen in ER on 2017, was some improvement, currently day 6 on Keflex. Patient was borderline hypotensive in the ER, was postural hypotension, and was found to have black guaiac positive stool. GI intervention was done in the ER visit prior to admission, with IV PPI, and endoscopy which showed GE junction ulcer/erosive gastroduodenitis, however no active bleeding is identified. During our clinical interaction, patient appeared to be alert and oriented 3, and answered all my questions and followed all my commands. On admission, Vitals: Stable BP 88/52, HR 85, satting 94% room air -CBC: WBC 12.5, H/H 14.1/49.3, PLT 347, PT/INR 12.0/1.1 -BMP: Unremarkable, lactic acid 1.4 -UA/Microbiology: None available -EKG: Normal sinus rhythm without significant ST-T abnormalities. -Interventions in ER: IV PPI 1, IV Zofran 1, IV normal saline bolus 1 Problem list & Assessment: #Symptomatic anemia from acute GI blood loss from small intestine/GI tracts not reached by EGD #Peptic ulcer disease 2/2 use of NSAIDs without active bleeding #RLE cellulitis, resolving #Hypotension: Status post IVF in the ER. #Hx of PVCs s/p Cath, HTN, HLD, DM, DM neuropathy, CBP 2/2 herniated disc Hospital Course: Upon admission, patient received aggressive IV fluid rehydration, IV PPI, Zofran , and all medications, except NovoLog sliding scale/Accu-Chek. Patient underwent GI endoscopy to rule out any active bleeding source. GI endoscopy showed a GE junction ulcer versus erosive gastroduodenitis, however no active or recent bleeding site were identified. Patient was advanced to clear liquid diet , tolerated well, and eventually started on regular diabetic diet, without any more episodes of black stools/guaiac positive bowel movement. Patient was trended on hemoglobin overnight and in the morning labs, and he stabilized and hemoglobin 10.2 prior to discharge. Patient was advised to follow-up with Dr. Barakat within a week, and CBC in outpatient lab as well. Patient was also advised to stop taking NSAIDs, and switch to Tylenol for now for his chronic back pain only been further evaluated by her primary care physician. In addition patient was continue on 2 more days on antibiotics for his right lower extremity cellulitis. His right lower extremity cellulitis mostly resolved prior to discharge, with resolution of leukocytosis since hospital day 2. Patient remained afebrile over hospital stay. DVT prophylaxis none Diabetic Diet Full Code Allergies: Coded Allergies: No Known Allergies (11/16/15) Significant Procedures: Procedure Date: 08/21/17 Procedure Type: EGD/enteroscopy Box Fabricator: Fransico Barakat M.D. ASA Classification: III Indications: GI bleed (melena, hypotension) Instrument: diagnostic gastroscope, adult gastroscope, pediatric colonoscope Meds Received: MAC (O2 via mask) Patient's Tolerance: good Complications: none Extent Reached: jejunum Procedure: The patient signed informed consent, and was medicated. Lidocaine pharyngeal spray was administered. Pulse oximetry, blood pressure and cardiac monitoring were performed continuously throughout the procedure. The Olympus high- definition gastroscope was inserted into the mouth and advanced to the duodenum. Retroflexion was performed within the stomach to examine the cardia. Careful examination was performed. Following this, the gastroscope was exchanged for high-definition pediatric colonoscope, which was inserted through the mouth and advanced to the jejunum (entire length of the colonoscope). Findings: The esophagus had normal caliber and contour. There were no varices. At the area of the GE junction was a 1 cm shallow ulcer covered with exudate. There was surrounding erythema. There was no evident hiatal hernia. The stomach had normal distention, and active peristalsis. There was no old or fresh blood within the gastric cavity. The cardia was normal. Mucosa and folds of the fundus, body and incisura were normal. There were scattered erosions in the antrum. No ulcers were seen. The pyloric channel was normal. Within the duodenal bulb were several erosions, but no noted ulcers. The mucosa and folds from descending duodenum to jejunum were normal. There was no blood, and no vascular lesions were noted. Impression: * GE junction ulcer * Erosive gastroduodenitis * No active/recent bleeding site identified Disposition Summary Disposition Principal Diagnosis: #Symptomatic anemia from acute GI blood loss from small intestine/GI tracts not reached by EGD #Peptic ulcer disease 2/2 use of NSAIDs without active bleeding #RLE cellulitis, resolving #Hypotension: Status post IVF in the ER. #Hx of PVCs s/p Cath, HTN, HLD, DM, DM neuropathy, CBP 2/2 herniated disc Additional Diagnosis: As above Discharge Disposition: home or self care Discharge Instructions General Discharge Information Code Status: Full Code Patient's Diet: Diabetic Diet Patient's Activity: As tolerated Follow-Up Instructions/Appts: Please follow up with your PCP, [facility] within one week of discharge. Medications at Discharge Discharge Medications: Stop taking the following medications: Lisinopril (Lisinopril) 40 MG TABLET ORAL DAILY Qty = 90 Continue taking these medications: Metformin HCl (Metformin HCl) 1,000 MG TABLET 1 Tablet ORAL TWICE DAILY Qty = 180 Comments: NOT GIVEN IN HOSPITAL Metoprolol Succ XL (Toprol XL) 25 MG TAB 1 Tablet ORAL DAILY Qty = 90 Comments: Last Taken: 08/24/17 Time: 0830 AM Empagliflozin (Jardiance) 25 MG TABLET 1 Tablet ORAL DAILY Qty = 30 Comments: NOT GIVEN IN HOSPITAL. Dulaglutide (Trulicity) 1.5 MG/0.5 ML PEN.INJCTR 1.5 Milligram Inject into fatty tissue EVERY THURSDAY Qty = 6 Comments: NOT GIVEN IN HOSPITAL. Rosuvastatin Calcium (Crestor) 10 MG TABLET 0.5 Tablet ORAL DAILY Qty = 90 Comments: NOT GIVEN IN HOSPITAL Aspirin (Ecotrin*) 81 MG TABLET. 1 Tablet ORAL DAILY Comments: NOT GIVEN IN HOSPITAL. Start taking the following new medications: Acetaminophen (Tylenol Extra Strength) 500 MG TABLET 1 Tablet ORAL DAILY as needed for Chronic Back Pain Qty = 10 No Refills Instructions: . Comments: NOT GIVEN IN HOSPITAL. Omeprazole (Omeprazole) 40 MG CAPSULE. 1 Capsule ORAL TWICE DAILY Qty = 60 No Refills Comments: Last Taken: 08/24/17 Time: 0835 AM Copies To: Richi ALTAMIRANO,Cayetano Isabel Attending MD Review Statement Documenting Attending: Hansel ALTAMIRANO,Cassidy Other Findings: Patient came with complaints to vomiting, black colred stools, with burnng sensation in stomach , was taking lot of pain meds. NSAIDS for musculoskeletal pain. Patient underwent EGD and found to have peptic ulcer disease with 1 cm ulcer at GE junction with exudates. No active bleeding reported. Biopsy done Overnight events: No new complaints. Vital stable. PE unremarkable. HB >10. NO NSAIDS, PO PPI BID Antihypertensives on hold, resumed metoprolol. dc today. RISS and titrate insulin as needed. resume home dm meds. FOLLOW UP PCP in 1 week GI in 2-3 weeks f/u biopsy report.
[2017-08-22 22:06] VITALS: BP 106/66
[2017-08-23 07:06] VITALS: BP 130/80
[2017-08-23 07:45] LABS: ABSOLUTE BASOPHIL COUNT 0 /CUMM (0.0-0.2); ABSOLUTE EOSINOPHIL COUNT 0.3 /CUMM (0.0-0.7); ABSOLUTE LYMPH COUNT 1.9 /CUMM (1.2-3.4); ABSOLUTE MONOCYTE COUNT 0.4 /CUMM (0.10-0.60); BASOPHIL % 0.3 % (0.0-2.0); EOSINOPHIL % 4.5 % (0-5); GRANULOCYTE % 53.7 % (42.2-75.2); HEMATOCRIT 27.3 % (42-52); MEAN CORPUSCULAR HGB CONC 33.6 G/DL (33.0-37.0); MEAN CORPUSCULAR VOLUME 95.2 FL (80.0-94.0); MEAN PLATELET VOLUME 7.3 FL (7.4-10.4); PLATELET COUNT 222 /CUMM (130-400); RBC DISTRIBUTION WIDTH 13.7 % (11.5-14.5); RED BLOOD CELL CT 2.87 /CUMM (4.70-6.10); WHITE BLOOD CELL COUNT 5.6 /CUMM (4.8-10.8)
--- NOTE | 2017-08-23 10:36 | PN- Att Addend ---
Attending Addendum Attending Brief Note Patient came with complaints to vomiting, black colred stools, with burnng sensation in stomach , was taking lot of pain meds. NSAIDS for musculoskeletal pain. Patient underwent EGD and found to have peptic ulcer disease with 1 cm ulcer at GE junction with exudates. No active bleeding reported. Overnight events: No new complaints. Vital stable. PE unremarkable. HB 9.2 this am. Patient admitted to telemetry [facility]. Watch for bleeding, Advcance Diet as per GI/regular diet, NO NSAIDS, PO PPI BID, DC IVF, serial cbc monitoring and transfuse to keep hb 7-8. Follow GI recommendation and monitor hemodynamics. Antihypertensives on hold, resume metoprolol today. RISS and titrate insulin as needed. Admission Lab Results I reviewed the following labs: Laboratory Tests 08/23 0630 Chemistry Sodium (137 - 145 mmol/L) 140 Potassium (3.5 - 5.1 mmol/L) 3.9 Chloride (98 - 107 mmol/L) 108 H Carbon Dioxide (22 - 30 mmol/L) 24 Anion Gap (5 - 16) 8 BUN (9 - 20 mg/dL) 11 Creatinine (0.7 - 1.2 mg/dL) 0.6 L Estimated GFR (>60 ml/min) > 60 BUN/Creatinine Ratio (7 - 25 %) 18.3 Hematology CBC w Diff NO MAN DIFF REQ WBC (4.8 - 10.8 /CUMM) 5.6 RBC (4.70 - 6.10 /CUMM) 2.87 L Hgb (14.0 - 18.0 G/DL) 9.2 L Hct (42 - 52 %) 27.3 L MCV (80.0 - 94.0 FL) 95.2 H MCH (27.0 - 31.0 PG) 32.0 H MCHC (33.0 - 37.0 G/DL) 33.6 RDW (11.5 - 14.5 %) 13.7 Plt Count (130 - 400 /CUMM) 222 MPV (7.4 - 10.4 FL) 7.3 L Gran % (42.2 - 75.2 %) 53.7 Lymphocytes % (20.5 - 51.1 %) 33.5 Monocytes % (1.7 - 9.3 %) 8.0 Eosinophils % (0 - 5 %) 4.5 Basophils % (0.0 - 2.0 %) 0.3 Absolute Granulocytes (1.4 - 6.5 /CUMM) 3.0 Absolute Lymphocytes (1.2 - 3.4 /CUMM) 1.9 Absolute Monocytes (0.10 - 0.60 /CUMM) 0.4 Absolute Eosinophils (0.0 - 0.7 /CUMM) 0.3 Absolute Basophils (0.0 - 0.2 /CUMM) 0 Admission Meds I reviewed the following Meds: Current Medications Sig/Mary Start time Last Medication Dose Stop Time Status Admin Cephalexin 500 MG Q8 08/21 2200 AC 08/23 (Keflex 500MG Cap) 0548 Insulin Aspart 0 TIDAC 08/22 0800 AC (NovoLOG) Omeprazole 40 MG BID 08/22 2200 AC 08/23 (Prilosec) 0921 Ondansetron HCl 4 MG Q8P PRN 08/21 1800 AC (Zofran) Sodium Chloride 1,000 ML .Q6H40M 08/21 1800 AC 08/23 (Normal Saline 0.9%) 0259
[2017-08-23 13:45] VITALS: BP 130/80
--- NOTE | 2017-08-23 13:45 | PN- Gastroenterology ---
Assessment/Plan GI Assessment/Recommendations: GI bleed/melena. There is no evidence of active bleeding; the single episode of melena likely represents old blood. Hemoglobin/hematocrit have stabilized. BUN has normalized. Endoscopy demonstrated a GE junction ulcer, and erosive gastroduodenitis. Recommendations * Continue regular diet * Maintain oral PPI twice a day for now * Check CBC tomorrow morning * No NSAIDs; the patient will require alternative therapy for his back. * If discharged, which is anticipated, would arrange for CBC midweek, and office visit with me in approximately 10-14 days * Consideration of outpatient PillCam, and re-endoscopy in several months Subjective Subjective: The patient had a single black bowel movement last night, and none today. There has been no red blood per rectum. He denies indigestion, heartburn, nausea, abdominal pain. There has been no dizziness, presyncope, diaphoresis. Review of Systems: Without change Objective Vital Signs and I&Os Vital Signs Date Time Temp Pulse Resp B/P B/P Pulse O2 O2 Flow FiO2 Mean Ox Delivery Rate 08/23 705 98.0 79 20 130/80 96 Room Air 08/22 220 98.9 82 20 106/66 96 Room Air 08/22 1413 98.0 86 20 98/62 96 Room Air Intake & Output 08/23 1600 08/23 0400 08/22 1600 08/22 0400 08/21 1600 08/21 0400 Intake Total 110 558 200 300 Output Total 700 300 Balance 110 558 -500 0 Intake, IV 10 Intake, Oral 100 558 200 300 Number 1 Bowel Movements Output, Urine 700 300 Patient 238 lb 229 lb 229 lb Weight Weight Bed scale Reported by Patient Measurement Method Physical Exam: Normal cognition. Mild pallor. Sclera anicteric. No adenopathy. Abdomen soft , nontender. Improvement in the right leg cellulitis, positive edema. Current Medications: Current Medications Sig/Mary Start time Last Medication Dose Route Stop Time Status Admin Cephalexin 500 MG Q8 08/21 2199 AC 08/23 PO 0548 Insulin Aspart 0 TIDAC 08/22 0800 AC SC Metoprolol Succinate 25 MG DAILY 08/23 1100 AC PO Omeprazole 40 MG BID 08/22 2200 AC 08/23 PO 0921 Ondansetron HCl 4 MG Q8P PRN 08/21 1800 AC IV Pantoprazole Sodium 40 MG BID 08/22 1000 DC 08/22 IV 0843 Sodium Chloride 1,000 ML .Q6H40M 08/21 1800 AC 08/23 IV 0259 Results Pertinent Lab Results: Laboratory Tests 08/23 08/22 0630 0620 Chemistry Sodium (137 - 145 mmol/L) 140 140 Potassium (3.5 - 5.1 mmol/L) 3.9 3.9 Chloride (98 - 107 mmol/L) 108 H 107 Carbon Dioxide (22 - 30 mmol/L) 24 26 Anion Gap (5 - 16) 8 7 BUN (9 - 20 mg/dL) 11 22 H Creatinine (0.7 - 1.2 mg/dL) 0.6 L 0.7 Estimated GFR (>60 ml/min) > 60 > 60 BUN/Creatinine Ratio (7 - 25 %) 18.3 31.4 H Hematology CBC w Diff NO MAN DIFF REQ NO MAN DIFF REQ WBC (4.8 - 10.8 /CUMM) 5.6 7.8 RBC (4.70 - 6.10 /CUMM) 2.87 L 2.93 L Hgb (14.0 - 18.0 G/DL) 9.2 L 9.4 L Hct (42 - 52 %) 27.3 L 27.5 L MCV (80.0 - 94.0 FL) 95.2 H 94.0 MCH (27.0 - 31.0 PG) 32.0 H 32.1 H MCHC (33.0 - 37.0 G/DL) 33.6 34.2 RDW (11.5 - 14.5 %) 13.7 13.5 Plt Count (130 - 400 /CUMM) 222 222 MPV (7.4 - 10.4 FL) 7.3 L 7.3 L Gran % (42.2 - 75.2 %) 53.7 62.6 Lymphocytes % (20.5 - 51.1 %) 33.5 27.0 Monocytes % (1.7 - 9.3 %) 8.0 7.6 Eosinophils % (0 - 5 %) 4.5 2.5 Basophils % (0.0 - 2.0 %) 0.3 0.3 Absolute Granulocytes (1.4 - 6.5 /CUMM) 3.0 4.9 Absolute Lymphocytes (1.2 - 3.4 /CUMM) 1.9 2.1 Absolute Monocytes (0.10 - 0.60 /CUMM) 0.4 0.6 Absolute Eosinophils (0.0 - 0.7 /CUMM) 0.3 0.2 Absolute Basophils (0.0 - 0.2 /CUMM) 0 0 08/21 08/21 2250 1703 Chemistry Lactic Acid (0.7 - 2.1 mmol/L) 1.3 Hematology CBC w Diff NO MAN DIFF REQ WBC (4.8 - 10.8 /CUMM) 9.4 RBC (4.70 - 6.10 /CUMM) 3.06 L Hgb (14.0 - 18.0 G/DL) 9.7 L Hct (42 - 52 %) 29.1 L MCV (80.0 - 94.0 FL) 95.1 H MCH (27.0 - 31.0 PG) 31.9 H MCHC (33.0 - 37.0 G/DL) 33.5 RDW (11.5 - 14.5 %) 13.5 Plt Count (130 - 400 /CUMM) 253 MPV (7.4 - 10.4 FL) 6.9 L Gran % (42.2 - 75.2 %) 62.4 Lymphocytes % (20.5 - 51.1 %) 28.0 Monocytes % (1.7 - 9.3 %) 7.8 Eosinophils % (0 - 5 %) 1.5 Basophils % (0.0 - 2.0 %) 0.3 Absolute Granulocytes (1.4 - 6.5 /CUMM) 5.8 Absolute Lymphocytes (1.2 - 3.4 /CUMM) 2.6 Absolute Monocytes (0.10 - 0.60 /CUMM) 0.7 H Absolute Eosinophils (0.0 - 0.7 /CUMM) 0.1 Absolute Basophils (0.0 - 0.2 /CUMM) 0 08/21 1330 Chemistry Sodium (137 - 145 mmol/L) 141 Potassium (3.5 - 5.1 mmol/L) 4.4 Chloride (98 - 107 mmol/L) 103 Carbon Dioxide (22 - 30 mmol/L) 26 Anion Gap (5 - 16) 12 BUN (9 - 20 mg/dL) 51 H Creatinine (0.7 - 1.2 mg/dL) 0.8 Estimated GFR (>60 ml/min) > 60 BUN/Creatinine Ratio (7 - 25 %) 63.8 H Glucose (65 - 99 mg/dL) 126 H Lactic Acid (0.7 - 2.1 mmol/L) 1.4 Calcium (8.4 - 10.2 mg/dL) 9.3 Total Bilirubin (0.2 - 1.3 mg/dL) 0.7 AST (17 - 59 U/L) 14 L ALT (21 - 72 U/L) 27 Alkaline Phosphatase (< 127 U/L) 54 C-React Prot High Sens (1.0 - 3.0 mg/L) 8.3 H Total Protein (6.3 - 8.2 g/dL) 6.8 Albumin (3.5 - 5.0 g/dL) 4.0 Globulin (1.9 - 4.2 gm/dL) 2.8 Albumin/Globulin Ratio (1.1 - 2.2 %) 1.4 Lipase (23 - 300 U/L) 235 Coagulation PT (9.4 - 12.5 SEC) 12.0 INR (0.90 - 1.17) 1.10 APTT (25 - 37 SEC) 30 Hematology CBC w Diff NO MAN DIFF REQ WBC (4.8 - 10.8 /CUMM) 12.5 H RBC (4.70 - 6.10 /CUMM) 4.15 L Hgb (14.0 - 18.0 G/DL) 13.1 L Hct (42 - 52 %) 39.3 L MCV (80.0 - 94.0 FL) 94.6 H MCH (27.0 - 31.0 PG) 31.5 H MCHC (33.0 - 37.0 G/DL) 33.3 RDW (11.5 - 14.5 %) 13.5 Plt Count (130 - 400 /CUMM) 347 MPV (7.4 - 10.4 FL) 7.0 L Gran % (42.2 - 75.2 %) 65.4 Lymphocytes % (20.5 - 51.1 %) 27.5 Monocytes % (1.7 - 9.3 %) 6.3 Eosinophils % (0 - 5 %) 0.6 Basophils % (0.0 - 2.0 %) 0.2 Absolute Granulocytes (1.4 - 6.5 /CUMM) 8.2 H Absolute Lymphocytes (1.2 - 3.4 /CUMM) 3.4 Absolute Monocytes (0.10 - 0.60 /CUMM) 0.8 H Absolute Eosinophils (0.0 - 0.7 /CUMM) 0.1 Absolute Basophils (0.0 - 0.2 /CUMM) 0
[2017-08-23 22:01] VITALS: BP 118/74
[2017-08-24 07:01] VITALS: BP 126/80
--- NOTE | 2017-08-24 07:52 | PN- Housestaff ---
Shanna Marcum 08/24/17 0752: Subjective Follow-up For: As problem list in [facility] Tele-Events Since Last Visit: NSR Subjective: No overnight event. Patient had another black stool overnight however no signs of active bleeding or ab pain. Was told by GI that his black stool may last for a couple more days. He acknowledged that he should not be taking any more NSAIDs. No other specific complaint. Review of Systems Constitutional: Reports: see HPI. Objective Last 24 Hrs of Vital Signs/I&O Vital Signs Date Time Temp Pulse Resp B/P B/P Pulse O2 O2 Flow FiO2 Mean Ox Delivery Rate 08/24 834 83 126/80 08/24 0701 98.5 83 16 126/80 96 Room Air 08/23 2201 98.8 81 20 118/74 97 Room Air 08/23 1345 98.2 79 20 130/80 96 Room Air 08/23 1341 79 130/80 Intake & Output 08/24 1600 08/24 0800 08/24 0000 Intake Total 110 460 Output Total Balance 110 460 Intake, IV 10 Intake, Oral 100 460 Number 1 Bowel Movements Patient 108.862 kg Weight Weight Bed scale Measurement Method Physical Exam General Appearance: Alert, Oriented X3, Cooperative, No Acute Distress Cardiovascular: Regular Rate Lungs: Clear to Auscultation, Normal Air Movement Abdomen: Soft, No Tenderness Neurological: Normal Speech, Strength at 5/5 X4 Ext Extremities: No Edema, Normal Pulses, RLE cellulitis resolving erythema and tenderness, still elevated skin temp. Current Medications: Current Medications Sig/Mary Start time Last Medication Dose Route Stop Time Status Admin Cephalexin 500 MG Q8 08/21 2199 AC 08/24 PO 0546 Insulin Aspart 0 TIDAC 08/22 0800 AC 08/23 SC 1726 Metoprolol Succinate 25 MG DAILY 08/23 1100 AC 08/24 PO 0835 Omeprazole 40 MG BID 08/22 2199 AC 08/24 PO 0835 Ondansetron HCl 4 MG Q8P PRN 08/21 1800 AC IV Sodium Chloride 1,000 ML .[id number] 08/21 1800 DC 08/23 IV 0259 Last 24 Hrs of Lab/Jose Results Last 24 Hrs of Labs/Mics: Laboratory Tests 08/24/17 0658: CBC w Diff NO MAN DIFF REQ, RBC 3.15 L, MCV 94.8 H, MCH 32.3 H, MCHC 34.1, RDW 13.4, MPV 7.5, Gran % 53.7, Lymphocytes % 33.9, Monocytes % 7.4, Eosinophils % 4.6, Basophils % 0.4, Absolute Granulocytes 3.4, Absolute Lymphocytes 2.2, Absolute Monocytes 0.5, Absolute Eosinophils 0.3, Absolute Basophils 0 Assessment/Plan Assessment: Mr. Benitez is a 61-year-old male with PMH of hypertension, hyperlipidemia, diabetes, recent ER visit treating for right lower extremity cellulitis still on Keflex, presented to ER with chief complaint of black stool for 6 days, along with abdominal pain/vomiting, and dizziness. Patient began to have nausea/ vomiting after meal an outside restaurant on Thursday night 08/16/2017. Patient stated that he noticed some black stool prior to eating outside on Thursday, however after the restaurant meal, he became more nausea and vomiting intermittently. Patient had 2-3 bowel movements to per day, intermittent abdominal discomfort/nausea/vomiting was nonbloody vomitus, however denied heartburn/BRBPR/chest pain/S OB/headache. Patient admitted a use of NSAIDs for long-term, possibly decades, to combat his chronic back pain secondary to history of herniated disc. He recently increased her dose of NSAIDs due to some muscle achiness from "flu bugs". He was also on treatment of Keflex on cellulitis that he was seen in ER on 2017, was some improvement, currently day 6 on Keflex. Patient was borderline hypotensive in the ER, was postural hypotension, and was found to have black guaiac positive stool. GI intervention was done in the ER visit prior to admission, with IV PPI, and endoscopy which showed GE junction ulcer/erosive gastroduodenitis, however no active bleeding is identified. During our clinical interaction, patient appeared to be alert and oriented 3, and answered all my questions and followed all my commands. On admission, Vitals: Stable BP 88/52, HR 85, satting 94% room air -CBC: WBC 12.5, H/H 14.1/49.3, PLT 347, PT/INR 12.0/1.1 -BMP: Unremarkable, lactic acid 1.4 -UA/Microbiology: None available -EKG: Normal sinus rhythm without significant ST-T abnormalities. -Interventions in ER: IV PPI 1, IV Zofran 1, IV normal saline bolus 1 Problem list & Assessment: #Peptic ulcer disease: As revealed on endoscopy done on admission. Currently stable without active bleeding, however would contribute to the black stools, taking into account patient's recent increase of a use of NSAIDs. #Symptomatic anemia from acute blood loss: As above #RLE cellulitis: Currently improved per patient, however still had some elevation of skin temperature, and mild tenderness at cough area. We will continue treatment of antibiotics #Hypotension: Status post IVF in the ER. #Hx of PVCs s/p Cath, HTN, HLD, DM, DM neuropathy, CBP 2/2 herniated disc Hospital Course: -Pending discharge today -Continue PO PPI and will continue after discharge for a month before being seen by GI.\\Hold all NSAIDs -Tolerated diabetic diet well. -CBC reveald 10.2 on latest lab, stablized. -BP stablized at 126/80 with restart of metoprolol. DVT prophylaxis none Diabetic Full Code Problem List: 1. Upper GI bleed 2. Cellulitis of right leg Pain Ratin Pain Location: NA Pain Goal: Remain pain free Pain Plan: see AP Tomorrow's Labs & Rationales: Cassidy Bustos 08/24/17 1025: Attending MD Review Statement Attending Statement Attending MD Statement: examined this patient, discuss w/resident/PA/SOCIAL SECURITY BENEFITS INTERVIEWER, agreed w/resident/PA/SOCIAL SECURITY BENEFITS INTERVIEWER, discussed with family, reviewed EMR data (avail), discussed with nursing, discussed with case mgmt, reviewed images, amended to note Attending Assessment/Plan: Patient came with complaints to vomiting, black colred stools, with burnng sensation in stomach , was taking lot of pain meds. NSAIDS for musculoskeletal pain. Patient underwent EGD and found to have peptic ulcer disease with 1 cm ulcer at GE junction with exudates. No active bleeding reported. Overnight events: No new complaints. Vital stable. PE unremarkable. HB >10. Patient admitted to telemetry monitoirng. Watch for bleeding, Advcance Diet as per GI/regular diet, NO NSAIDS, PO PPI BID, DC IVF, serial cbc monitoring and transfuse to keep hb 7-8. Follow GI recommendation and monitor hemodynamics. Antihypertensives on hold, resumed metoprolol. dc today. RISS and titrate insulin as needed. resume home dm meds.
[2017-08-24 08:01] LABS: ABSOLUTE BASOPHIL COUNT 0 /CUMM (0.0-0.2); ABSOLUTE EOSINOPHIL COUNT 0.3 /CUMM (0.0-0.7); ABSOLUTE GRANULOCYTE CT 3.4 /CUMM (1.4-6.5); ABSOLUTE LYMPH COUNT 2.2 /CUMM (1.2-3.4); ABSOLUTE MONOCYTE COUNT 0.5 /CUMM (0.10-0.60); BASOPHIL % 0.4 % (0.0-2.0); EOSINOPHIL % 4.6 % (0-5); GRANULOCYTE % 53.7 % (42.2-75.2); HEMATOCRIT 29.9 % (42-52); MEAN CORPUSCULAR HGB 32.3 PG (27.0-31.0); MEAN CORPUSCULAR HGB CONC 34.1 G/DL (33.0-37.0); MEAN CORPUSCULAR VOLUME 94.8 FL (80.0-94.0); MEAN PLATELET VOLUME 7.5 FL (7.4-10.4); PLATELET COUNT 273 /CUMM (130-400); RBC DISTRIBUTION WIDTH 13.4 % (11.5-14.5); RED BLOOD CELL CT 3.15 /CUMM (4.70-6.10); WHITE BLOOD CELL COUNT 6.4 /CUMM (4.8-10.8)
[2017-08-24 08:35] VITALS: BP 126/80
[2017-08-24] MEDS ORDERED: TYLENOL EXTRA500 M2 PO (10:10)
[2017-08-24] MEDS ORDERED: OMEPRAZOLE20 M2 PO (10:10)
[2017-08-24] MEDS ORDERED: OMEPRAZOLE40 M1 PO (10:11)
== END 2017-08-24 12:25 | DRG 384 ==
LOC: ERH 13:06 → 1NO 16:28 → ERHI 16:28 → ENRESERV 18:13 → EDBEDREQ 18:52 → ENTRNSPT 19:00 → 1NO 19:03 → EDTRNSPT 19:17 → 1NO 19:21 → CMPTRNSPT 19:33 → 1NO 08-24 12:25
PROVIDERS: Emergency Medicine; Internal Medicine Endocrinology, Diabetes & Metabolism; Student in an Organized Health Care Education/Training Program
PROC: 0DJ08ZZ Inspection of Upper Intestinal Tract, Via Natural or Artificial Opening Endoscopic (ICD-10-PCS; principal; 2017-08-21)
DX: K25.9 Gastric ulcer, unspecified as acute or chronic, without hemorrhage or perforation (principal); E11.40 Type 2 diabetes mellitus with diabetic neuropathy, unspecified; I95.9 Hypotension, unspecified; D62 Acute posthemorrhagic anemia; L03.115 Cellulitis of right lower limb; T39.395A Adverse effect of other nonsteroidal anti-inflammatory drugs [NSAID], initial encounter; I10 Essential (primary) hypertension; Z79.84 Long term (current) use of oral hypoglycemic drugs; Z79.82 Long term (current) use of aspirin; Z98.1 Arthrodesis status; G51.0 Bell's palsy; M54.9 Dorsalgia, unspecified; K29.90 Gastroduodenitis, unspecified, without bleeding
CPT/HCPCS: 1NP; 36415; 36592; 82436; 87040; 93005; 93010; J2405